=== PATIENT | male | born 2000 | race Caucasian/White ===

== ENCOUNTER → 2023-12-15 | Outpatient (CLI) | payer SELFPAY ==
--- NOTE | 2023-12-15 09:39 | US_ITS ---
INDICATION: VARICOCELE EXAMINATION: Ultrasound US Scrotum (Contents) TECHNIQUE: Realtime ultrasound of the testicles was performed with grayscale, Color Doppler and spectral Doppler analysis. COMPARISON: No relevant prior comparison study available FINDINGS: TESTES: Right testis: 5.2 x 3.7 x 2.3 cm. Left testis: 5.2 x 3.9 x 2.6 cm. Symmetric size and homogeneous. Intratesticular vascular flow demonstrated bilaterally. No evidence of testicular torsion. EPIDIDYMIDES: Symmetric size and vascularity. HYDROCELE: Small bilateral. VARICOCELE: Present on the left. SCROTAL WALL: Unremarkable. OTHER: None. US/Testicular with Arterial Flow IMPRESSION: Left varicocele. Small bilateral hydroceles. No evidence of testicular torsion. Electronically Signed: Alvina Harrell MD at 2:10 EDT ,
[2023-12-15 11:00] LABS: Hematocrit 45.2 % (40-54)
[2023-12-15 11:33] LABS: Hemoglobin A1c 4.7 % (3.8-5.6)
[2023-12-15 11:45] LABS: Estradiol 12.9 pg/mL; Follicle Stimulating Hormone 2.6 mIU/mL; Luteinizing Hormone 3.6 mIU/mL; Thyroid Stim Hormone (TSH) 1.69 uIU/mL (0.358-3.74)
== END | disposition home or self-care (01) ==
DX: I86.1 Scrotal varices (principal); R86.9 Unspecified abnormal finding in specimens from male genital organs
CPT/HCPCS: 36415; 76870; 82670; 83001; 83002; 83036; 84403; 84443; 85014; 85018; 93976

== ENCOUNTER 2024-12-30 02:04 | Emergency (ER) | payer BC, SELFPAY ==
[2024-12-30 02:06] VITALS: BP 151/96; PULSE 81; RESP 16; TEMP 36.7; O2SAT 100; BMI 28.8
--- NOTE | 2024-12-30 02:33 | EX.ED.DYSGE1 ---
HPI History of Present Illness Chief Complaint: General Illness Narrative Narrative: Patient is a 24-year-old male who presents to the emergency department the chief complaint of concern for mold exposure and difficulty sleeping. 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 He states that he cleaned the shop himself and notes that he has been having the similar symptoms that he had previously when he is exposed to mold where he will twitch periodically when he tries to sleep which keeps him awake at night. He does not know if he has an electrolyte imbalance. Patient states that he tried melatonin without any ability to sleep. PFSH PFSH Medical History no medical history Home Medications ?Medication ?Instructions ?Recorded ?Last Taken ?Type trazodone 50 mg tablet 50 mg PO QHS PRN insomnia #14 tabs 12/30/24 Unknown Rx Allergy/AdvReac Type Severity Reaction Status Date / Time rice Allergy Mild hives Verified 12/30/24 02:06 gluten AdvReac Mild Vomiting Verified 12/30/24 02:06 Social History Smoking Status: Never smoker ROS ROS ED ROS Narrative Constitutional: Denies any fevers, chills, headaches Eyes: Denies any double vision Cardiovascular: Denies chest pain Respiratory: Denies shortness of breath Abdomen: Denies nausea vomiting diarrhea : Denies any urinary symptoms Neurological: Denies any numbness, weakness, tingling Musculoskeletal: Denies back pain Skin: Denies any rashes or lesions EXAM Physical Exam Narrative Exam Narrative: General: Patient was lying in bed rest comfortably did not appear to be in acute distress Head: Atraumatic, normocephalic Eyes: PERRL bilaterally, EOMI bilaterally, no conjunctival injection noted Neck: Soft, supple, trachea midline Cardiovascular: Regular rate and rhythm Respiratory: Clear to auscultation bilaterally Abdomen: No tenderness palpation Extremities: +5/5 strength noted in the bilateral upper and lower extremities Neurological: Patient following commands knew that she was at [facility] the year is 2024 Skin: Warm, dry, intact no rashes or lesions noted Const Vital Signs: 12/30/24 02:06 Temperature 98.1 F Temperature Source Oral Pulse Rate 81 Respiratory Rate 16 Blood Pressure 151/96 H Blood Pressure Mean 114 Pulse Ox 100 Oxygen Delivery Method Room Air MDM MDM MDM Narrative Medical decision making narrative: Patient is a 24-year-old male who presented to the emergency department with a chief complaint of concern for mold exposure and abnormal involuntary movements. On the differential diagnosis includes but not limited to electrolyte abnormality, abnormal involuntary movements, anxiety. Once the workup is obtained reviewed he will be reevaluated. Patient BMP reviewed showed a sodium that was normal at 130, potassium normal at 4.1, creatinine was 1.21, calcium normal at 9.6. Did discuss results with the patient he would like to go home at this point in time. He will be given prescription for trazodone to help him sleep. He is advised to return with worsening symptoms or any concerns otherwise he is to follow-up his doctor in outpatient setting. All question concerns answered he is discharged home in stable condition. Lab Data Labs: Laboratory Results - last 24 hr 12/30/24 02:33 Sodium 138 Potassium 4.1 Chloride 102 Carbon Dioxide 22.3 Anion Gap 13 BUN 19 Creatinine 1.21 H Estim Creat Clear Calc 116.67 Est GFR (MDRD) Non-Af 86 BUN/Creatinine Ratio 15.5 Glucose 106 H Calcium 9.6 Discharge Plan Triage Chief Complaint: General Illness ED Provider: Paolo Genao Dx/Rx/DC Orders Clinical Impression: Encounter for medical screening examination, Abnormal involuntary movement, Insomnia Prescriptions: New trazodone 50 mg tablet 50 mg PO QHS PRN (Reason: insomnia) Qty: 14 0RF Primary Care Provider: Care Physician,No Primary Referrals: Care Physician,No Primary [Primary Care Provider] - Tanvir Langston MD [Med Staff - Active Staff] - Activity Restrictions/Additional Instructions: Use the sleeping medication no sent to your pharmacy as prescribed. Follow-up with the doctor referred to if you do not have 1. Return with worsening symptoms or any concerns there were no electrolyte abnormalities on your blood work. Print Language: Persian Disposition Disposition: Home, Self Care
[2024-12-30] MEDS: 0.9% Normal Saline (1000mL) 1,000 ML 999 ML IV (02:34)
--- OUTSIDE RECORDS SUMMARY | 2024-12-30 02:41 | XMS RPT_ITS | CCD ---
Author Organization [facility] Care Team Providers Care Guide Dog Instructor Name Role Phone DOMENIC SANDOVAL Referring Unavailable DOMENIC SANDOVAL Attending Unavailable Care Physician, No Primary Primary Care Unava ilable Care Physician, No Primary Primary Care Unava ilable Jasmeet Plata Attending Unavailable DOMENIC SANDOVAL Attending Unavailable Problems Problem Classification Problem Date Documented Da te Episodic/Chronic Other diseases of veins and lymphatics (1 source) Scrotal varices; Translations: [Scrotal varices] Onset: 02-19-2024 Episodic Other screening for suspected conditions (not mental disorders or infectious disease) (1 source) Unspecified abnormal finding in specimens from male genital organs; Translations: [Unspecified abnormal finding in specimens from male genital organs] Onset: 02-04-2024 Episodic Results Test Name Value Interpretation Reference Range [facility] [place] Normal [facility] Comment on above: Order Comment: [id number] PROLACTIN SER/RT Result Comment: TEST RESULTS LIMITS Prolactin 6.9 ng/mL 3.6-31.5 TESTING PERFORMED AT [facility]. ORIGINAL REPORT ON FILE IN LAB CONTAINS ADDITIONAL TEST SITE INFORMATION. Performed By: #### L 3100.1550, L3100.9085, L509.3000, L3300.1750, L501.9985, L100.0600, L801.1541, L3100.5420, L501.9520 #### [facility] [address] [place], [address] Estradiolon 12-15-2023 ESTRADIOL 12.9 pg/mL Normal [facility] Comment on above: Result Comment: NORM AL REFERENCE RANGES FEMALE FOLLICULAR 21.4 - 164.8 pg/mL MID-CYCLE PEAK 49.9 - 367.2 pg/mL LUTEAL 40.2 - 259.0 pg/mL POST-MENOPAUSAL ON MHT <11.0 - 462.1 pg/mL NOT ON MHT <11.0 - 58.3 pg/mL MALE <11.0 - 52.5 pg/mL NOTE: [facility] HAS CONFIRMED THE DRUG FULVETRANT (FASLODEX) MAY CAUSE FALSELY ELEVATED ESTRADIOL RESULTS WHEN USING THIS TEST METHOD. IF PATIENT IS TAKING FULVESTRANT AN ALTERNATIVE METHOD SHOULD BE USED TO DETERMINE ESTRADIOL CONCENTRATION. Performed By: #### L 3100.5170, L3100.5125, L509.3000, L3300.1750, L501.9985, L100.0600, L801.1541, L3100.5420, L501.9520 #### [facility] [address] [place], [address] Follicle Stimulating Hormone on 12-15-2023 FSH 2.6 mIU/mL Normal [facility] Comment on above: Result Comment: NORMAL REFERENCE RANGES FEMALE FOLLICULAR 2.3 - 12.6 mIU/mL MID-CYCLE PEAK 5.2 - 17.5 mIU/mL LUTEAL 1.7 - 12.9 mIU/mL POST-MENOPAUSAL ON MHT 5.9 - 72.8 mIU/mL NOT ON MHT 12.7 - 132.2 mlU/mL MALE 0.7 - 10.8 mIU/mL Performed By: #### L 3100.5170, L3100.5125, L509.3000, L3300.1750, L501.9985, L100.0600, L801.1541, L3100.5420, L501.9520 #### [facility] [address] [place], [address] HH, Hemoglobin AND Hematocri ton 12-15-2023 Hematocrit (Bld) [Volume fraction] 45.2 % Normal 40-54 [facility] Comment on above: Performed By: #### L 3100.5170, L3100.5125, L509.3000, L3300.1750, L501.9985, L100.0600, L801.1541, L3100.5420, L501.9520 #### [facility] [address] [place], [address] Hemoglobin (Bld) [Mass/Vol] 16.0 g/dL Normal 13.0-16.5 [facility] Comment on above: Performed By: #### L 3100.5170, L3100.5125, L509.3000, L3300.1750, L501.9985, L100.0600, L801.1541, L3100.5420, L501.9520 #### [facility] [address] [place], [address] Hemoglobin A1con 12-15-2023 HbA1c (Bld) [Mass fraction] 4.7 % Normal 3.8-5.6 [facility] Comment on above: Result Comment: Norm al < 5.7 % Prediabetic 5.7 - 6.4 % Diabetic >or= 6.5 % Please note range changes. Performed By: #### L 3100.5170, L3100.5125, L509.3000, L3300.1750, L501.9985, L100.0600, L801.1541, L3100.5420, L501.9520 #### [facility] [address] [place], [address] Luteinizing Hormoneon 2023 LH 3.6 mIU/mL Normal [facility] Comment on above: Result Comment: NORMAL REFERENCE RANGES FEMALE FOLLICULAR 1.9 - 26.2 mIU/mL MID-CYCLE PEAK 22.8 - 76.1 mIU/mL LUTEAL 0.6 - 16.6 mIU/mL POST-MENOPAUSAL ON MHT 1.1 - 52.4 mIU/mL NOT ON MHT 8.6 - 61.8 mIU/mL MALE 1.2 - 10.6 mIU/mL Performed By: #### L 3100.5170, L3100.5125, L509.3000, L3300.1750, L501.9985, L100.0600, L801.1541, L3100.5420, L501.9520 #### [facility] [address] [place], [address] Prolactinon 12-15-2023 PROLACTIN TNP Normal [facility] Comment on above: Performed By: #### L 3100.5170, L3100.5125, L509.3000, L3300.1750, L501.9985, L100.0600, L801.1541, L3100.5420, L501.9520 #### [facility] [address] [place], [address] Testicular with Arterial Oleg won 12-15-2023 Testicular with Arterial Flow [facility] Imaging Services [address] [place] [address] Testicular with Arterial Flow MR#: [id number] Acct: [id number] Name: CECILIA OLIVAS Rep #: [id number] : 2000 M 23 From: Alvina Lamas PCP: Care Physician,No Primary Status: [facility] Study: Testicular with Arterial Flow Date of Exam: Exam# [id number] Ordering Dr: JASMEET PLATA [id number] INDICATION: VARICOCELE EXAMINATION: Ultrasound US Scrotum (Contents) TECHNIQUE: Realtime ultrasound of the testicles was performed with grayscale, Color Doppler and spectral Doppler analysis. COMPARISON: No relevant prior comparison study available __ FINDINGS: TESTES: Right testis: 5.2 x 3.7 x 2.3 cm. Left testis: 5.2 x 3.9 x 2.6 cm. Symmetric size and homogeneous. Intratesticular vascular flow demonstrated bilaterally. No evidence of testicular torsion. EPIDIDYMIDES: Symmetric size and vascularity. HYDROCELE: Small bilateral. VARICOCELE: Present on the left. SCROTAL WALL: Unremarkable. OTHER: None. US/Testicular with Arterial Flow IMPRESSION: Left varicocele. Small bilateral hydroceles. No evidence of testicular torsion. 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 Normal [facility] Testosterone, Serum Totalon 12-15-2023 Testosterone [Mass/Vol] 616.99 ng/dL Normal [facility] Comment on above: Result Comment: CENT RAL 90% REFERENCE RANGES MALE AGE <50 197.44 - 669.58 ng/dL MALE AGE > or = 50 187.72 - 684.19 ng/dL FEMALE AGE <50 8.38 - 35.01 ng/dL FEMALE AGE > or = 50 <7.00 - 35.92 ng/dL Effective as of 12/18/20 Performed By: #### L 3100.5170, L3100.5125, L509.3000, L3300.1750, L501.9985, L100.0600, L801.1541, L3100.5420, L501.9520 #### [facility] [place] [place], [address] Thyroid Stim Hormone (TSH)on 12-15-2023 TSH 1.69 uIU/mL Normal 0.358-3.74 [facility] Comment on above: Performed By: #### L 3100.5170, L3100.5125, L509.3000, L3300.1750, L501.9985, L100.0600, L801.1541, L3100.5420, L501.9520 #### [facility] [address] [place], [address] Encounters Encounter Date Encounter Type Care Provider Facility Start: 02-04-2024 ambulatory No Primary Care Physici an Facility:[facility] Start: 12-15-2023 End: 12-15-2023 ambulatory DOM[facility]IC [facility] Facility:[facility] Start: 12-01-2023 ambulatory DOMENIC [facility] Facility:[facility] Payers Date Payer Category Payer Unknown [id number] 2023 Self-pay Unknown [id number] Unknown [id number] Summary Purpose Family History No Family History Records Found Advance Directives No Advanced Directives Records Found Additional Source Comments (unrecognized sect ion and content) No Status Records Found INFORMATION SOURCE (unrecogn ized section and content) DATE CREATED AUTHOR 02/20/2024 [facility] FOR RECORDS PERTAINING TO PATIENTS WHO ARE OR HAVE BEEN ENROLLED IN A CHEMICAL DEPENDENCY/SUBSTANCEABUSE PROGRAM, SOME INFORMATION MAY BE OMITTED. This clinical summary was aggregated from multiple sources. Caution should be exercised in using it in the provision of clinical care. This summary normalizes information from multiple sources, and as a consequence, information in this document may materially change the coding, format and clinical context of patient data. In addition, data may be omitted in some cases. CLINICAL DECISIONS SHOULD BE BASED ON THE PRIMARY CLINICAL RECORDS. [facility]. provides no warranty or guarantee of the accuracy or completeness of information in this document.
[2024-12-30 03:59] LABS: Anion Gap 13 (5-15); BUN 19 mg/dL (4-19); BUN/Creat Ratio 15.5 RATIO (10-20); Calcium,Total 9.6 mg/dL (7.6-11.0); Carbon Dioxide 22.3 mmol/L (21.0-32.0); Chloride 102 mmol/L (98-108); Estimated Creatinine Clearance 116.67 ml/min (50-250); Glucose 106 mg/dL (70-99); Potassium 4.1 mmol/L (3.3-5.1)
[2024-12-30 04:18] VITALS: BP 156/96; PULSE 61; RESP 16; TEMP 36.6; O2SAT 96
== END 2024-12-30 04:19 | disposition home or self-care (01) ==
PROVIDERS: Emergency Provider Emergency Medicine; Visit Provider Emergency Medicine
DX: G47.00 Insomnia, unspecified (principal); R25.9 Unspecified abnormal involuntary movements
CPT/HCPCS: 80048; 96360; 96361; 99282; A4216

== ENCOUNTER 2025-02-22 00:55 | Emergency (ER) | payer BC, SELFPAY ==
[2025-02-22 00:57] VITALS: BP 144/78; PULSE 84; RESP 18; TEMP 36.8; O2SAT 99
--- NOTE | 2025-02-22 01:56 | ED.RN ---
This RN witnessed the patient returning from the waiting room with multiple snacks from the vending machine and drinking a cup of coffee.
--- NOTE | 2025-02-22 02:16 | ED.RN ---
This RN witnessed the patient walking out of his room. The patient states when is the doctor going to be here? This RN explained that we are very busy and the doctor will be in when he is able to see the patient. The patient proceeded to walk towards the waiting room. This RN asked the patient where he was going and the patient responded, I am going to get some coffee, is that not allowed? This RN educated the patient on how the coffee has caffeine and caffeine will keep him awake and he is here to sleep, so this RN explained that the patient is here for insomnia and should probably not be consuming caffeine if he would like to sleep. The patient laughed, turned to continue walking and stated, well I am going to drink coffee.
--- NOTE | 2025-02-22 02:20 | ED.RN ---
Pt going out to coffee numerous times. Pt rang ochoa to come back into department. This nurse opended doors. Pt turned around and walked to the waiting room and sat down. This nurse explained to pt that if he wanted to be seen he needed to wait in his room and could not hang out in the waiting room. Pt escorted to room.
--- NOTE | 2025-02-22 03:23 | EDS_ITS ---
HPI History of Present Illness Chief Complaint: General Illness Informant: patient Narrative Narrative: Patient is a 24-year-old male who reports that he has difficulty sleeping and that his sleep deprivation will lead to changes in mental status. He states this dates back multiple years. He states that there has been no excessive stimulant use or illicit drug use to lead to the insomnia. He reports that he has seen various physicians regarding this and that a previous psychiatrist had him on a high dose of B vitamins which help control symptoms and other medication which helped with sleep. He states there is no homicidal or suicidal ideation. He reports he was seen in the ER a few weeks to month ago and the medication prescribed did help with the symptoms. He states he is out of the medication however and is back to having insomnia and therefore presents for potential medication refill. PFSH PFSH Medical History no medical history Home Medications ?Medication ?Instructions ?Recorded ?Last Taken ?Type trazodone 100 mg tablet 100 mg PO QHS PRN insomnia # 30 tabs 02/22/25 Unknown Rx Allergy/AdvReac Type Severity Reaction Status Date / Time rice Allergy Mild hives Verified 02/22/25 07:30 Milk Containing Products Allergy vomiting Verified 02/22/25 07:30 (Dairy) gluten AdvReac Mild Vomiting Verified 02/22/25 07:30 Social History Smoking Status: Never smoker ROS ROS ED Constitutional Constitutional ED: Reports other Details: Positive insomnia ; Denies chills or fever(s) Eyes Eyes: Denies change in vision ENT ENT ED: Denies sore throat Cardiovascular Cardiovascular: Denies chest pain, palpitations or racing heartbeat Respiratory/Chest Respiratory/Chest: Denies cough or dyspnea Gastrointestinal Gastrointestinal: Denies abdominal pain, diarrhea, nausea or vomiting Musculoskeletal Musculoskeletal: Denies myalgias Integumentary Denies rash Neurologic Neurologic: Denies headache(s) Psychiatric Psychiatric: Denies anxiety, depression, suicidal ideation or suicidal thoughts Hematologic/Lymphatic Hematologic/Lymphatic: Denies easy bleeding or easy bruising EXAM Physical Exam Const Vital Signs: 02/22/25 00:57 02/22/25 00:57 02/22/25 03:27 Temperature 98.3 F 98 F Temperature Source Oral Pulse Rate 84 72 Respiratory Rate 18 18 Respiratory Effort Normal Non-Labored Respiratory Pattern Normal Blood Pressure 144/78 H 144/62 H Blood Pressure Mean 100 89 Pulse Ox 99 100 Oxygen Delivery Method Room Air Positive well nourished and well developed General Appearance ED: well developed; Negative for pallor HEENT HEENT Narrative: Normocephalic atraumatic Eyes PERRL and EOMs intact bilaterally General Eye ED: Negative for scleral icterus Neck supple Neck Narrative: No nuchal rigidity or meningeal signs Resp normal respiratory effort and clear to auscultation bilaterally Cardio regular rate and regular rhythm Extremity normal to inspection Neuro oriented x3, CN's II-XII intact bilaterally and no sensory deficits noted Sensorium / Orientation: alert Motor Exam: strength 5/5 throughout Psych Psych Narrative: Patient has pressured speech with flight of ideas No homicidal or suicidal ideation Skin no rashes or lesions noted General Skin Exam: Negative for jaundice or pallor MDM MDM MDM Narrative Medical decision making narrative: The patient presented to the ER slightly hypertensive otherwise with stable vitals. He reported longstanding history of intermittent difficulty with sleep. He states he has seen a psychiatrist in the past and has been on medication. At this time he has no homicidal or suicidal ideation. He denies his insomnia is related to any type of illicit drug use or stimulant use. By history and exam there is no secondary infection process causing this. I do feel that he has underlying psychiatric problems that he is not relying with potential bipolar as a main cause as he is reported previous admissions in the past psychiatric centers and intermittent insomnia which would correlate with potential manic episodes and he does have pressured speech and flight of ideas on today's evaluation. However without him being homicidal or suicidal do not feel there is need for emergent evaluation by psychiatry. I will prescribe trazodone as he states this has helped him in the past but he is otherwise safe for discharge History & Record Review Discussion w/independent historian: Patient Discharge Plan Triage Chief Complaint: General Illness ED Provider: Gavin De Jesus Dx/Rx/DC Orders Clinical Impression: Insomnia Instructions: Treating Insomnia, ED Insomnia Prescriptions: New trazodone 100 mg tablet 100 mg PO QHS PRN (Reason: insomnia) Qty: 30 0RF Primary Care Provider: Care Physician,No Primary Referrals: Tanvir Langston MD [Med Staff - Active Staff, Family Practice] Care Physician,No Primary [Primary Care Provider, Medical] Print Language: Marshallese Disposition Disposition: Home, Self Care Discharge Date/Time: 02/22/25 03:28
[2025-02-22 03:27] VITALS: BP 144/62; PULSE 72; RESP 18; TEMP 36.6; O2SAT 100
== END 2025-02-22 03:28 | disposition home or self-care (01) ==
LOC: ED 03:28
PROVIDERS: Emergency Provider Emergency Medicine; Visit Provider Emergency Medicine
DX: G47.00 Insomnia, unspecified (principal)
CPT/HCPCS: 99282

== ENCOUNTER 2025-02-22 07:29 | Emergency (ER) | payer BC, SELFPAY ==
[2025-02-22 07:30] VITALS: BP 143/102; PULSE 85; RESP 16; TEMP 35.5; O2SAT 100; BMI 28.8
--- NOTE | 2025-02-22 07:45 | RAD_ITS ---
PROCEDURE: CHEST PA AND LATERAL 02/22/2025 REASON FOR EXAM: INJURY TECHNIQUE: Procedure Code: RADCXR Modality: DX Procedure: CHEST PA AND LATERAL COMPARISON: None FINDINGS: Heart size and mediastinal configuration are within normal limits. There is no focal infiltrate or consolidation. There is no pneumothorax or effusion. There is no acute bony abnormality. There is no visible atherosclerosis. RAD/Chest PA and Lateral IMPRESSION: No acute process is identified in the chest. Reading Location: [facility]
--- NOTE | 2025-02-22 07:46 | EX.ED.GENINJ ---
HPI History of Present Illness Chief Complaint: Chest Other Detail of Chief Complaint: Chest injury Informant: patient Narrative Narrative: Patient presents with a left chest injury that occurred this morning. States he was angry and kind of ran into a door. Complains of pain with laying down and certain movements. Mild shortness of breath. Pain with deep breath. also states that patient's not been sleeping. He was seen in the emergency department early this morning and was prescribed trazodone for sleep which she has had previously. states he is also seeing a physician who thinks patient has high mold levels and will be treated for mold exposure. Patient's believes the mold is causing all his issues with trouble sleeping. Patient denies feeling suicidal or homicidal. He does complain of anxiety and feeling anxious at times. Denies auditory or visual hallucinations. PFSH PFSH Medical History no medical history Home Medications ?Medication ?Instructions ?Recorded ?Last Taken ?Type ltraconazole 02/22/25 Unknown History trazodone 100 mg tablet 100 mg PO QHS PRN insomnia #30 tabs 02/22/25 Unknown Rx Allergy/AdvReac Type Severity Reaction Status Date / Time rice Allergy Mild hives Verified 02/22/25 07:30 Milk Containing Products Allergy vomiting Verified 02/22/25 07:30 (Dairy) gluten AdvReac Mild Vomiting Verified 02/22/25 07:30 Social History Smoking Status: Never smoker ROS ROS ED Review of Systems ROS Unobtainable: other Constitutional Constitutional ED: Reports lethargy; Denies chills, fever(s), sweats or weight loss Eyes Eyes: Denies blurry vision, change in vision or diplopia ENT ENT ED: Denies rhinorrhea or sore throat Cardiovascular Cardiovascular: Reports chest pain; Denies orthopnea or racing heartbeat Respiratory/Chest Respiratory/Chest: Reports dyspnea; Denies cough, dyspnea on exertion, orthopnea or sputum Gastrointestinal Gastrointestinal: Denies abdominal pain, diarrhea, nausea or vomiting Genitourinary Genitourinary ED: Denies dysuria, hematuria or urinary frequency Musculoskeletal Musculoskeletal: Denies arthralgias, back pain, myalgias or neck pain Integumentary Denies abscess, Abrasions or rash Neurologic Neurologic: Denies headache(s) or weakness Psychiatric Psychiatric: Denies anxiety, depression or suicidal thoughts Endocrine Endocrinology: Denies polydipsia, polyphagia or polyuria Hematologic/Lymphatic Hematologic/Lymphatic: Denies easy bleeding, easy bruising or lymphadenopathy Allergic/Immunologic Allergic/Immunologic ED: Denies mouth swelling, tongue swelling or urticaria EXAM Physical Exam Const Vital Signs: 02/22/25 07:30 Temperature 96 F L Temperature Source Temporal Pulse Rate 85 Respiratory Rate 16 Blood Pressure 143/102 H Blood Pressure Mean 115 Pulse Ox 100 Positive well nourished and well developed General Appearance ED: well developed and NAD HEENT Reports TM's clear and moist mucous membranes normocephalic and atraumatic; Negative for trauma or tenderness Tympanic Membrane ED: Yes TM's clear Eyes PERRL and EOMs intact bilaterally General Eye ED: Negative for pale conjunctiva or scleral icterus Neck no lymphadenopathy, supple and no JVD General: Negative for tenderness Chest Wall inspection of chest normal Chest Narrative: Patient does have some tenderness to palpation over the left lower anterior chest wall that seems to reproduce his pain. There is no ecchymosis or bruising noted. No crepitus or subcu edema noted. Chest: Negative for tenderness Resp normal respiratory effort and clear to auscultation bilaterally Effort and Inspection: Negative for respiratory distress or pain with movement Auscultation: Negative for rhonchi, wheezes or diminished lung sounds Cardio regular rate, regular rhythm, S1 normal heart sound, S2 normal heart sound and no murmurs Peripheral Pulses: pulses 2+ throughout GI normal to inspection, nondistended, normoactive bowel sounds, soft to palpation, non-tender, non-distended and no masses Back/Spine no CVA tenderness and no thoracic nor lumbar tenderness Extremity normal to inspection General Extremety ED: Negative for edema General Extremity: Negative for edema Neuro oriented x3, CN's II-XII intact bilaterally, no sensory deficits noted and gait normal Sensorium / Orientation: awake, alert, oriented to person, oriented to place and oriented to time Motor Exam: strength 5/5 throughout and strength abnormal Psych mental status grossly normal Skin no rashes or lesions noted and no wounds MDM MDM MDM Narrative Medical decision making narrative: Patient presents with left upper rib injury from home. Seen earlier this morning for difficulty sleeping and was prescribed trazodone which he had been prescribed in the past. Patient states that your years ago while in [place] was admitted to a psychiatric facility and diagnosed with bipolar disorder. He currently does not take any medications. Patient states that he sees some sort of a [facility]isc[facility] group that can help him. I offered to have him speak with social work care for some resources but he does not want to do that. He denies feeling suicidal or homicidal. Patient denies any safety concerns at home to me. Patient will be discharged to home in stable condition Radiography Diagnostic Testing: Clinical Impression(s) from Imaging Studies Chest X-Ray 02/22/25 07:45 IMPRESSION: No acute process is identified in the chest. Reading Location: [facility] 1 view chest x-ray obtained interpreted by myself as no evidence of infiltrate or pneumothorax or acute disease process. Radiology in agreement. Discharge Plan Triage Chief Complaint: Chest Other ED Provider: Ramon Eagle Dx/Rx/DC Orders Clinical Impression: Chest wall contusion Instructions: ED Chest Wall Contusion Prescriptions: No Action trazodone 100 mg tablet 100 mg PO QHS PRN (Reason: insomnia) Qty: 30 0RF ltraconazole Rx Instructions: 100 mg has not started this med yet, waiting for it to come in the mail. Primary Care Provider: Care Physician,No Primary Referrals: Tanvir Langston MD [Med Staff - Active Staff, Family Practice] - 3-5 Days Care Physician,No Primary [Primary Care Provider, Medical] Print Language: Georgian Disposition Disposition: Home, Self Care
--- NOTE | 2025-02-22 08:07 | ED.RN ---
pt is guarded about his mental health info, he denies being suicidal or homicidal. Nurse suggested talking to social media marketing manager and he consented. Nurse spoke to Dr Eagle about him initially not wanting to talk to social media marketing manager, because the work manager at [facility] was aware of their situation. Nurse encouraged him to talk to social media marketing manager and he consented. stopped nurse in [place], and said he was not taking the trazadone because Dr Benitez --a natural doctor said it was not compatiable with ltraconazole 100 mg, which they are waiting for to arrive in the mail. Also states what pt is experiencing it related to mold.
--- NOTE | 2025-02-22 08:55 | ED.RN ---
pt stated he did not want to stay for a older adult social work specialist, wants to leave. Dr cevallos confirmed pt. is ok to leave
== END 2025-02-22 08:56 | disposition home or self-care (01) ==
PROVIDERS: Emergency Provider Emergency Medicine; Visit Provider Emergency Medicine
DX: S20.212A Contusion of left front wall of thorax, initial encounter (principal); W22.09XA Striking against other stationary object, initial encounter
CPT/HCPCS: 71046; 99282

== ENCOUNTER 2025-02-23 23:34 | Emergency (ER) | payer BC, SELFPAY ==
[2025-02-23 23:34] VITALS: BP 159/92; PULSE 89; RESP 18; TEMP 36.6; O2SAT 100; BMI 28.8
--- NOTE | 2025-02-24 00:01 | EKG12_ITS ---
Test Reason : CHEST PAIN Blood Pressure : */* mmHG Vent. Rate : 92 BPM Atrial Rate : 92 BPM P-R Int : 150 ms QRS Dur : 104 ms QT Int : 372 ms P-R-T Axes : 55 -29 43 degrees QTcB Int : 460 ms Normal sinus rhythm with sinus arrhythmia Inferior infarct , age undetermined Abnormal ECG Confirmed by FAITH PETERSON, JANE ([id number]), assistant editor JEWELL JUAREZ ([id number]) on 02/27/2025 6:20:08 AM Referred By: CARMEN Confirmed By: JANE CUEVAS MD
[2025-02-24] MEDS: 0.9% Normal Saline (1000mL) 1,000 ML 999 ML IV (00:11)
[2025-02-24 00:22] LABS: Hematocrit 40.7 % (40-54); Hemoglobin 14.3 g/dL (13.0-16.5); Immature Granulocytes Count 0.020 X10^3/uL (0.0-0.0); Mean Corp Hgb Conc 35.1 g/dL (32-36); Mean Corpuscular Volume 82.1 fL (80-94); Mean Platelet Vol. 9.8 fl (6.2-12.0); NRBC Flagged by Analyzer 0 % (0-5); Platelet Count 203 K/mm3 (150-450); RBC Distribution Width CV 13.4 % (11.6-14.6); RBC Distribution Width SD 40.0 fl (35.1-43.9); Red Blood Count 4.96 M/mm3 (4.6-6.2); White Blood Count 8.2 K/mm3 (4.4-11.0)
[2025-02-24 00:52] LABS: Anion Gap 12 (5-15); BUN 20 mg/dL (4-19); BUN/Creat Ratio 14.7 RATIO (10-20); Calcium,Total 9.3 mg/dL (7.6-11.0); Carbon Dioxide 22.4 mmol/L (21.0-32.0); Chloride 103 mmol/L (98-108); Estimated Creatinine Clearance 106.11 ml/min (50-250); Glucose 118 mg/dL (70-99); Magnesium 2.4 mg/dL (1.5-2.2); Potassium 3.7 mmol/L (3.3-5.1)
--- NOTE | 2025-02-24 01:24 | EX.ED.DYSGE1 ---
HPI History of Present Illness Chief Complaint: Chest Pain Informant: patient and spouse/S.O. Narrative Narrative: Patient is a 24-year-old male with past medical history of bipolar disorder. He states that he was walking up the stairs when he felt like his heart rate increased and with this he reports he had chest discomfort. He denies any history of cardiac dysrhythmia such as A-fib a flutter or SVT. He states that there is been no illicit drug use or excessive stimulant use. He states he feels better at this time but with the event occurring he was concerned this could be cardiac in nature and therefore comes in for evaluation [facility] Medical History Infertility Bipolar 1 disorder Home Medications ?Medication ?Instructions ?Recorded ?Last Taken ?Type trazodone 100 mg tablet 100 mg PO QHS PRN insomnia #30 tabs 02/22/25 Unknown Rx Allergy/AdvReac Type Severity Reaction Status Date / Time rice Allergy Mild hives Verified 02/24/25 09:55 Milk Containing Products Allergy vomiting Verified 02/24/25 09:55 (Dairy) gluten AdvReac Mild Vomiting Verified 02/24/25 09:55 Social History Smoking Status: Never smoker ROS ROS ED Constitutional Constitutional ED: Denies chills or fever(s) Eyes Eyes: Denies change in vision ENT ENT ED: Denies sore throat Cardiovascular Cardiovascular: Reports chest pain, palpitations and racing heartbeat Respiratory/Chest Respiratory/Chest: Denies cough or dyspnea Gastrointestinal Gastrointestinal: Denies abdominal pain, diarrhea, nausea or vomiting Musculoskeletal Musculoskeletal: Denies myalgias Integumentary Denies rash Neurologic Neurologic: Denies headache(s) Hematologic/Lymphatic Hematologic/Lymphatic: Denies easy bleeding or easy bruising EXAM Physical Exam Const Vital Signs: 02/23/25 23:34 02/23/25 23:47 Temperature 97.9 F Temperature Source Temporal Pulse Rate 89 Respiratory Rate 18 Respiratory Effort Normal Blood Pressure 159/92 H Blood Pressure Mean 114 Pulse Ox 100 Oxygen Delivery Method Room Air Positive well nourished and well developed General Appearance ED: well developed; Negative for pallor HEENT HEENT Narrative: Normocephalic atraumatic No tongue or lip swelling no oral lesions no airway edema or compromise; no secondary findings in the posterior pharynx to suggest infection Eyes PERRL and EOMs intact bilaterally General Eye ED: Negative for pale conjunctiva or scleral icterus Neck supple Resp normal respiratory effort and clear to auscultation bilaterally Cardio regular rate and regular rhythm Rate: other Other Details: Heart is regular rate and rhythm without murmurs rubs or gallops Radial and carotid pulses are equal and symmetric GI normal to inspection, nondistended, normoactive bowel sounds, non-tender, non-distended and no masses Auscultation: normoactive bowel sounds Palpation: soft Extremity normal to inspection Extremity Narrative: No asymmetric edema no pitting edema negative Homans' sign bilaterally Neuro oriented x3, CN's II-XII intact bilaterally and no sensory deficits noted Sensorium / Orientation: alert Motor Exam: strength 5/5 throughout Psych Psych Narrative: Patient has a nervous/anxious affect but no homicidal or suicidal ideation Skin no rashes or lesions noted and skin turgor normal General Skin Exam: Negative for jaundice or pallor MDM MDM MDM Narrative Medical decision making narrative: Patient arrived to the ER slightly hypertensive but otherwise with stable vitals. He reported walking up the stairs when he felt it was heart was racing. He denies any history of abnormal heart rhythm. He states there is been no illicit drug use or excessive stimulant use. In order to check for potential causes such as acute blood loss anemia acute kidney injury or clinically significant Vianca abnormality or thyroid dysfunction basic blood work was obtained. Labs revealed no clinically significant findings. EKG showed no signs of ischemia or cardiac dysrhythmia. He was kept on the quality assurance monitor body and there was no dysrhythmia noted. He is low risk for DVT/PE and therefore I do not feel need for D-dimer. On reevaluation he reports feeling better and as overall workup is negative I do not feel there is need for further intervention in the ER and he can seek outpatient follow-up with his family doctor to discuss cardiology referral and/or Holter monitor if symptoms persist. History & Record Review Discussion w/independent historian: Patient and Significant other Lab Data Attestation: I reviewed the patient's lab results. Labs: Laboratory Results - last 24 hr 02/24/25 00:10 WBC 8.2 RBC 4.96 Hgb 14.3 Hct 40.7 MCV 82.1 MCH 28.8 MCHC 35.1 RDW Std Deviation 40.0 RDW Coeff of Ulysses 13.4 Plt Count 203 MPV 9.8 Immature Gran % (Auto) 0.200 Neut % (Auto) 53.5 Lymph % (Auto) 33.8 [place] % (Auto) 8.4 Eos % (Auto) 3.2 Baso % (Auto) 0.9 Absolute Neuts (auto) 4.4 Absolute Lymphs (auto) 2.76 Nucleated RBC % 0 Sodium 138 Potassium 3.7 Chloride 103 Carbon Dioxide 22.4 Anion Gap 12 BUN 20 H Creatinine 1.33 H Estim Creat Clear Calc 106.11 Est GFR (MDRD) Non-Af 77 BUN/Creatinine Ratio 14.7 Glucose 118 H Calcium 9.3 Magnesium 2.4 H TSH 1.840 Discharge Plan Triage Chief Complaint: Chest Pain ED Provider: Gavin De Jesus Dx/Rx/DC Orders Clinical Impression: Palpitations, Insomnia, Bipolar disorder Instructions: ED Heart Palpitations Prescriptions: No Action trazodone 100 mg tablet 100 mg PO QHS PRN (Reason: insomnia) Qty: 30 0RF Primary Care Provider: Care Physician,No Primary Referrals: Tanvir Langston MD [Med Staff - Active Staff, Family Practice] Care Physician,No Primary [Primary Care Provider, Medical] Activity Restrictions/Additional Instructions: ER workup today revealed no sign of abnormal heart rhythm kidney damage electrolyte changes or thyroid dysfunction. Please follow-up with Dr. Langston for repeat evaluation and return to the ER should you have any further concerns Print Language: Greenlandic Disposition Disposition: Home, Self Care Discharge Date/Time: 02/24/25 01:29
[2025-02-24 01:27] VITALS: BP 136/85; PULSE 77; RESP 18; TEMP 36.6; O2SAT 99
== END 2025-02-24 01:29 | disposition home or self-care (01) ==
PROVIDERS: Emergency Provider Emergency Medicine; Visit Provider Emergency Medicine
DX: R00.2 Palpitations (principal); F31.9 Bipolar disorder, unspecified; G47.00 Insomnia, unspecified
CPT/HCPCS: 80048; 83735; 84443; 85025; 93005; 96360; 99283; A4216

== ENCOUNTER 2025-02-24 09:52 | Emergency (ER) | payer BC, SELFPAY ==
[2025-02-24 09:53] VITALS: BP 143/82; PULSE 89; RESP 16; TEMP 36.6; O2SAT 99
--- NOTE | 2025-02-24 10:01 | EX.ED.DYSGE1 ---
HPI History of Present Illness Chief Complaint: General Illness Narrative Narrative: Patient is a 24-year-old male presenting to the emergency department for difficulty sleeping. He has a past medical history of insomnia and bipolar 1 disorder. Was prescribed trazodone in the past which helped. He was here on 02/22 for insomnia and prescribed trazodone. He was here on 02/22 again after running into a wall for chest wall contusion and had a chest x-ray done that was negative. He was then here again this morning for reported palpitations. This morning he had lab work including CBC, BMP, magnesium and TSH done which were largely unremarkable. Patient presented with this morning and then his wanted him to check in to be seen which is why he is now being evaluated. Patient has no complaints. States he hasn't slept in 3 months. No HI or SI. No ingestion of stimulants other than caffeine at home. Denies drugs and alcohol. HPI - Psych History of Present Illness Chief Complaint: General Illness PFSH PFS Medical History Infertility Bipolar 1 disorder Home Medications ?Medication ?Instructions ?Recorded ?Last Taken ?Type trazodone 100 mg tablet 100 mg PO QHS PRN insomnia #30 tabs 02/22/25 Unknown Rx Allergy/AdvReac Type Severity Reaction Status Date / Time rice Allergy Mild hives Verified 02/24/25 09:55 Milk Containing Products Allergy vomiting Verified 02/24/25 09:55 (Dairy) gluten AdvReac Mild Vomiting Verified 02/24/25 09:55 Social History Smoking Status: Never smoker ROS ROS ED ROS Narrative see HPI EXAM Physical Exam Narrative Exam Narrative: Vital signs: Reviewed General: Alert and orientedx3. No acute distress HEENT: Head is normocephalic and atraumatic, sinuses nontender, pupils equal round and reactive. Nares are patent. Oropharynx and throat exams normal. Neck: Supple without lymphadenopathy nontender Cardiovascular: Regular rate and rhythm, no murmurs. No rubs or gallops. Normal S1 and S2 Respiratory: Clear to auscultation bilaterally. No wheezes, rales, rhonchi Abdominal: Soft and nontender. Normal bowel sounds. No guarding or rebound. Nonsurgical abdomen Extremities: No tenderness. No bruising. Normal range of motion. Normal sensation. Skin: No rash or redness. Neurological: Cranial nerves II through XII are grossly intact. Normal strength and sensation. Normal cerebellar function The rest of the physical exam is unremarkable Const Vital Signs: 02/24/25 09:53 02/24/25 10:04 Temperature 97.9 F Temperature Source Oral Pulse Rate 89 Respiratory Rate 16 Respiratory Effort Normal Respiratory Pattern Normal Blood Pressure 143/82 H Blood Pressure Mean 102 Pulse Ox 99 Oxygen Delivery Method Room Air Psych Psych Narrative: Flight of ideas. Pressured speech. Delusions. No HI or SI. MDM MDM MDM Narrative Medical decision making narrative: Patient is a 24-year-old male presenting to the emergency department at the request of his . Patient was seen and examined. Vitals are stable. Patient pacing around the room. No acute distress. Labs were done this morning that can be used for medical clearance. Overall unremarkable. Patient is not on any psychiatric medication at this time other than trazodone for sleep. Patient has flight of ideas, has pressured speech and is having delusions. helps provide history. She states he is unable to care for himself at home. Reports history of grandiose ideas. Patient is currently in a manic episode and I think would benefit from inpatient psychiatric admission. Patient was pink slipped by myself. Social work evaluated the patient and agreed with my assessment. Patient accepted to [facility] for further management. Clinical impression Manic History & Record Review Discussion w/independent historian: Patient and Significant other Additional record(s) reviewed:: Prior ED visit and Prior labs Lab Data Attestation: I reviewed the patient's lab results. Labs: Laboratory Results - last 24 hr 02/24/25 10:55 Urine Opiates Screen NEGATIVE U Buprenorphine Qual NEGATIVE Ur Oxycodone Screen NEGATIVE Urine Methadone Screen NEGATIVE Urine Fentanyl Screen NEGATIVE Ur Barbiturates Screen NEGATIVE Ur Phencyclidine Scrn NEGATIVE Ur Amphetamines Screen NEGATIVE U Benzodiazepines Scrn NEGATIVE Urine Cocaine Screen NEGATIVE U Cannabinoids Screen NEGATIVE Discharge Plan Triage Chief Complaint: General Illness ED Provider: Veronica Luna Dx/Rx/DC Orders Prescriptions: No Action trazodone 100 mg tablet 100 mg PO QHS PRN (Reason: insomnia) Qty: 30 0RF Primary Care Provider: Care Physician,No Primary Referrals: Care Physician,No Primary [Primary Care Provider, Medical] Print Language: Congolese
[2025-02-24 10:29] VITALS: BMI 28.8
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
[2025-02-24 11:50] LABS: Barbiturate Urine NEGATIVE (< 200 ng/mL); Benzodiazepine Urine NEGATIVE (< 200 ng/mL); PCP Urine NEGATIVE (< 25 ng/mL); THC Urine NEGATIVE (< 50 ng/mL)
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
--- NOTE | 2025-02-24 15:11 | CM.ED ---
Social Work Referral was sent to [place], patient accepted at same. Accepting physician is Dr. Solano. Patient will be going to [facility], [phone]. Patient and patients notified of accepting facility and transport time. [facility] slip faxed. asking about dress code and visiting hours. Information received from [place] and given to . No further questions or needs at this time. Nissa Bustos, TIME CLOCK MECHANIC, HYDRODYNAMICS TEACHER
[2025-02-24 18:55] VITALS: BP 143/82; PULSE 89; RESP 16; TEMP 36.6; O2SAT 99
== END 2025-02-24 18:58 ==
PROVIDERS: Emergency Provider Student in an Organized Health Care Education/Training Program; Visit Provider Student in an Organized Health Care Education/Training Program
DX: F31.10 Bipolar disorder, current episode manic without psychotic features, unspecified (principal)
CPT/HCPCS: 80307; 99285